=== PATIENT | female | born 1995 | race Caucasian/White ===

== ENCOUNTER 2019-01-14 06:22 | Inpatient (IN) | payer BC ==
[2019-01-11 10:13] LABS: ADD UMIC YES; UR ASCORBIC ACID NEGATIVE (NEGATIVE); UR BACTERIA FEW /HPF (NONE SEEN); UR BILIRUBIN (Dip) NEGATIVE (NEGATIVE); UR BLOOD (Dip) 1+ mg/dL (NEGATIVE); UR CLARITY CLEAR (CLEAR); UR COLOR STRAW (YELLOW); UR GLUCOSE (Dip) NEGATIVE (NEGATIVE); UR KETONES (Dip) NEGATIVE (NEGATIVE); UR LEUKOCYTE ESTERASE (Dip) NEGATIVE Leu/ul (NEGATIVE); UR NITRITE (Dip) NEGATIVE (NEGATIVE); UR RBC 0 /HPF (0-5); UR SPECIFIC GRAVITY (Dip) 1.003 (1.003-1.030); UR SQUAMOUS EPITHELIAL CELL FEW /HPF (FEW); UR TOTAL PROTEIN (Dip) NEGATIVE (NEGATIVE); UR UROBILINOGEN (Dip) NEGATIVE (NEGATIVE); UR WBC 1 /HPF (0-5)
[~2019-01-14 06:22] MED LIST: BUPIVACAINE 0.5% (SDV) 30 ML, morphine SULFATE (PF) 8 MG, EPINEPHrine 0.3 MG, KETOROLAC... IRR
[2019-01-14] MEDS: GABAPENTIN 300 MG CAP PO ×2 (07:06→20:15)
[2019-01-14] MEDS: DEXAMETHASONE 1 MG TAB PO (07:06)
[2019-01-14] MEDS: LACTATED RINGER'S 1,000 ML IV (07:20)
[2019-01-14] MEDS ORDERED: GLYCOPYRROLATE 0.4 MG INJ (07:31)
[2019-01-14] MEDS ORDERED: CEFAZOLIN 1 GM INJ (07:31)
[2019-01-14] MEDS ORDERED: MIDAZOLAM 1 MG/ML 2 ML INJ (07:31)
[2019-01-14] MEDS ORDERED: PROPOFOL 20 ML (07:31)
[2019-01-14] MEDS ORDERED: FENTAnyl 50 MCG/ML VIAL (07:31)
[2019-01-14] MEDS ORDERED: NEOSTIGMINE 3 MG/3 ML SYRINGE (07:31)
[2019-01-14] MEDS ORDERED: ROCURONIUM 50 MG INJ (07:31)
[2019-01-14] MEDS ORDERED: DEXAMETHASONE 4 MG/ML 5 ML INJ (07:32)
[2019-01-14] MEDS ORDERED: ONDANSETRON 4 MG INJ (07:32)
[2019-01-14] MEDS ORDERED: ROPIVACAINE 0.5 % 30 ML VIAL (07:32)
[2019-01-14] MEDS: CEFAZOLIN 2 GM/50 ML (PMX) 50 ML IVPB (08:00)
[2019-01-14] MEDS ORDERED: EPHEDrine 25 MG/5 ML SYG IV (08:00)
[2019-01-14] MEDS ORDERED: TRIMETHOBENZAMIDE 100 MG/ML VIAL IM (08:00)
[2019-01-14] MEDS ORDERED: LABETALOL HCL 20MG INJ IV (08:00)
[2019-01-14] MEDS ORDERED: ALBUTEROL 0.083% (NEB) 2.5 MG/3 ML AMP HHN (08:00)
[2019-01-14] MEDS ORDERED: IPRATROPIUM (NEB) 0.5 MG/2.5 ML AMP HHN (08:00)
[2019-01-14] MEDS ORDERED: OXYCODONE/ACETAMINOPHEN (5/325) TAB PO ×2 (08:00)
[2019-01-14] MEDS ORDERED: FENTAnyl 50 MCG/ML VIAL IV ×3 (08:00)
[2019-01-14] MEDS: TRANEXAMIC ACID 1GM/100ML(PMX) 100 ML IVPB ×2 (08:00→11:27)
[2019-01-14] MEDS ORDERED: MIDAZOLAM 1 MG/ML 2 ML INJ IV (08:00)
[2019-01-14] MEDS ORDERED: DIPHENHYDRAMINE 50 MG INJ IV ×2 (08:00→10:30)
[2019-01-14] MEDS ORDERED: ONDANSETRON 4 MG INJ IV (08:00)
[2019-01-14] MEDS ORDERED: hydrALAzine 20 MG INJ IV (08:00)
[2019-01-14] MEDS ORDERED: HYDROmorphONE 1 MG/5 ML IV SYRINGE IV ×3 (08:00)
[2019-01-14] MEDS ORDERED: MEPERIDINE 25 MG INJ IV (08:00)
[2019-01-14] MEDS ORDERED: CA CHLORIDE (GM) 10% 10 ML INJ (09:19)
[2019-01-14] MEDS ORDERED: TRANEXAMIC ACID 1GM/100ML(PMX) 100 ML (09:19)
[2019-01-14] MEDS: POLYMYXIN/BACITRACIN 1L IRRIG (09:19)
[2019-01-14] MEDS ORDERED: THROMBIN 5000 UNIT (RECOTHROM) VIAL (09:19)
[2019-01-14] MEDS ORDERED: ZOLPIDEM 5 MG TAB PO (10:30)
[2019-01-14] MEDS ORDERED: MAGNESIUM HYDROXIDE 30ML CUP PO (10:30)
[2019-01-14] MEDS ORDERED: LOPERAMIDE 2 MG CAP PO (10:30)
[2019-01-14] MEDS ORDERED: NACL 0.9% 3 ML SYG IV (10:30)
[2019-01-14] MEDS ORDERED: oxyCODONE 5 MG TAB PO ×3 (10:30)
[2019-01-14] MEDS: CEFAZOLIN 1 GM/50 ML (PMX) 50 ML IVPB ×2 (11:03→17:52)
[2019-01-14] MEDS: ACETAMINOPHEN 500 MG TAB PO ×2 (12:16→17:53)
[2019-01-14] MEDS: DEXAMETHASONE 2 MG TAB PO ×2 (12:37→17:52)
[2019-01-14] MEDS: KETOROLAC 15 MG INJ IV ×2 (14:12→22:25)
[2019-01-14] MEDS: ONDANSETRON 4 MG INJ IV ×2 (16:07→22:24)
[2019-01-14] MEDS: HYDROmorphONE 1 MG/ML SYG IV ×2 (16:07→20:13)
[2019-01-15] MEDS: DEXAMETHASONE 2 MG TAB PO ×2 (00:14→05:49)
[2019-01-15] MEDS: ACETAMINOPHEN 500 MG TAB PO ×2 (00:15→05:49)
[2019-01-15] MEDS: HYDROmorphONE 1 MG/ML SYG IV ×2 (03:28→10:53)
[2019-01-15] MEDS: CEFAZOLIN 1 GM/50 ML (PMX) 50 ML IVPB (03:28)
[2019-01-15] MEDS: ONDANSETRON 4 MG INJ IV ×2 (04:16→10:53)
[2019-01-15] MEDS: KETOROLAC 15 MG INJ IV (08:31)
[2019-01-15] MEDS: SENNA/DOCUSATE NA (8.6MG/50MG) TAB PO (08:31)
== END 2019-01-15 12:35 | disposition home or self-care (01) | DRG 483 ==
LOC: REC 06:22 → MS1 12:08
PROC: 0RRJ0J6 Replacement of Right Shoulder Joint with Synthetic Substitute, Humeral Surface, Open Approach (ICD-10-PCS; principal; 2019-01-14 08:00)
PROC: 0LS30ZZ Reposition Right Upper Arm Tendon, Open Approach (ICD-10-PCS; 2019-01-14 08:00)
DX: M12.511 Traumatic arthropathy, right shoulder (principal); S46.811A Strain of other muscles, fascia and tendons at shoulder and upper arm level, right arm, initial encounter; X58.XXXA Exposure to other specified factors, initial encounter
CPT/HCPCS: 73030-RT; 81001; 84703; 86999; 97161